=== PATIENT | female | born 1975 | race Caucasian/White ===

== ENCOUNTER 2017-05-23 06:19 | Inpatient (IN) | payer OTHER ==
[2017-05-23] VITALS (13 sets, daily range): BP systolic 104–132; BP diastolic 58–70
[~2017-05-23] VITALS: Ht 167.6 cm; Wt 104.2 kg
[~2017-05-23 06:19] MED LIST: BUPR150T8 PO; FERR325C PO; MULT-38 PO
[2017-05-23] MEDS ORDERED: normal saline 1000ML IV soln IVB ONE ×2 (06:35→11:25)
[2017-05-23 07:00] LABS: ABG BASE EXCESS -2.5 mmol/L (-2.0-3.0); ABG HCO3 16.9 mmol/L (22.0-26.0); ABG OXYGEN SATURATION 98.3 % (95-98); ABG PCO2 (T) 18.5 mmHg (32.0-45.0); ABG PH (T) 7.578 (7.350-7.450); ABG PO2 (T) 121.2 mmHg (83-108); FCOHb 0.5 % (0.5-1.5); FMetHb 0.1 % (0.3-1.12); FO2Hb 97.7 % (94-100); TOTAL HEMOGLOBIN 13.6 G/dl (12.0-16.0)
[2017-05-23] MEDS ORDERED: ondansetron/PF 4mg/2ml inj IV ONE (07:00)
[2017-05-23] MEDS ORDERED: morphine 4 MG/ML inj SYRINge IV ONE (07:00)
[2017-05-23 07:01] LABS: BASOPHILS % (AUTO) 0.1 % (0-1); EOSINOPHILS # (AUTO) 0.3 X10'3 (0-0.9); EOSINOPHILS % (AUTO) 1.7 % (0-6); HEMATOCRIT 37.1 % (35.0-45.0); HEMOGLOBIN 13.4 g/dl (12.0-16.0); LYMPHOCYTES # (AUTO) 0.7 X10'3 (1.1-4.8); LYMPHOCYTES % (AUTO) 4.1 % (21-51); MEAN CORPUSCULAR HEMOGLOBIN 31.4 PG (27.0-31.0); MEAN CORPUSCULAR VOLUME 87.2 FL (78-98); MEAN PLATELET VOLUME 7.1 FL (7.4-10.4); MONOCYTES # (AUTO) 0.5 X10'3 (0-0.9); MONOCYTES % (AUTO) 2.9 % (2-12); NEUTROPHILS # (AUTO) 14.9 X10'3 (1.8-7.7); NEUTROPHILS % (AUTO) 91.2 % (42-75); PLATELET COUNT 291 X10'3 (140-440); RED BLOOD COUNT 4.26 X10'6 (4.20-5.60); WHITE BLOOD COUNT 16.3 X10'3 (4.5-11.0)
[2017-05-23 07:12] LABS: INR 1.1 INR; PARTIAL THROMBOPLASTIN TIME 26 SECONDS (22-32); PROTHROMBIN TIME 11.6 SECONDS (9.0-12.0)
[2017-05-23 07:25] LABS: ACETAMINOPHEN < 2.0 UG/ML (10-30); ALANINE AMINOTRANSFERASE 31 U/L (12-78); ALBUMIN 3.5 G/DL (3.4-5.0); ALKALINE PHOSPHATASE 94 IU/L (46-116); ANION GAP 19 (8-16); ASPARTATE AMINO TRANSFERASE 31 U/L (10-37); BILIRUBIN,TOTAL 0.5 MG/DL (0.1-1.0); BLOOD UREA NITROGEN 12 MG/DL (7-18); BUN/CREATININE RATIO 4.9 (6.6-38.0); CHLORIDE 101 MMOL/L (99-107); CREATININE 2.45 MG/DL (0.40-0.90); ETHANOL < 0.010 GM/DL (0.0-0.010); GLUCOSE 178 MG/DL (70-104); POTASSIUM 3.5 MMOL/L (3.5-5.1); SODIUM 139 MMOL/L (135-145); TOTAL CARBON DIOXIDE 18.9 MMOL/L (24-32); TOTAL PROTEIN 7.1 G/DL (6.4-8.2); eGFR 22 ML/MIN
[2017-05-23] MEDS ORDERED: haloperidol lactate 5mg/ml inj IM ONE (07:35)
[2017-05-23 07:43] LABS: OSMOLALITY 343 MOSM/K (280-300)
[2017-05-23] MEDS: K, MAG and/or Phos replacement - Verify level? MC SCH (08:00)
[2017-05-23] MEDS ORDERED: HYDROmorphone 1 mg/ml syringe IV ONE (08:10)
[2017-05-23] MEDS ORDERED: HYDROmorphone inj. 0.5 MG/0.5 ML DISP.SYRIN IV ONE (08:15)
[2017-05-23 08:25] LABS: CLARITY,URINE SLIGHTLY CLOUDY (Clear); COLOR,URINE YELLOW (Yellow); GLUCOSE, URINE NEGATIVE (Neg); KETONES,URINE >=80 mg/dl (Neg); LEUKOCYTE ESTERASE ,URINE NEGATIVE (Neg); NITRITES, URINE NEGATIVE (Neg); OCCULT BLOOD,URINE MODERATE (Neg); PH,URINE 5.5 (4.8-8.0); PROTEIN,URINE 30 mg/dl (Neg); UROBILINOGEN,URINE 0.2 E.U/dL (0.2-1.0)
[2017-05-23 08:27] LABS: UA COLLECTION TYPE VOIDED
[2017-05-23] MEDS ORDERED: succinylcholine 20mg/ml inj IV ONE ×2 (08:33→08:40)
[2017-05-23 08:34] LABS: BACTERIA,URINE 2+ /HPF (Neg); MUCUS STRANDS FEW /LPF (Neg); SQUAMOUS EPITHELIAL CELL,UR MODERATE /LPF (FEW); WBC,URINE 0-4 /HPF (0-4)
[2017-05-23 08:40] LABS: URINE AMPHETAMINE SCREEN NEGATIVE (Neg); URINE BARBITUATE SCREEN NEGATIVE (Neg); URINE BENZODIAZEPINES SCREEN NEGATIVE (Neg); URINE CANNABINOID SCREEN NEGATIVE (Neg); URINE COCAINE SCREEN NEGATIVE (Neg); URINE METHADONE SCREEN NEGATIVE (Neg); URINE OPIATE SCREEN POSITIVE (Neg); URINE PHENCYCLIDINE SCREEN NEGATIVE (Neg)
[2017-05-23] MEDS ORDERED: etomidate 2mg/ml inj. IV ONE (08:40)
[2017-05-23] MEDS ORDERED: propofol 1000mg/100ml bottle 100 ML IV ONE (08:50)
[2017-05-23] MEDS ORDERED: propofol 1000mg/100ml bottle 100 ML IV PRN ×2 (08:53→11:07)
[2017-05-23 08:59] LABS: CKMB RELATIVE INDEX 0.6 RATIO (0-2.5); CREATINE KINASE 185 U/L (26-192); LIPASE 58 U/L (73-393)
[2017-05-23] MEDS ORDERED: VECuronium br 10mg inj. IV ONE ×2 (09:15→09:20)
[2017-05-23] MEDS ORDERED: fentaNYL/PF 50MCG/1 ML 2ML syringe IV ONE (09:20)
[2017-05-23] MEDS ORDERED: CefTRIAXone 2gm/NS 100ml IVPB 100 ML IV ONE (09:25)
[2017-05-23] MEDS ORDERED: MIDAZolam 5mg/ml 2ml vial IV ONE (09:30)
[2017-05-23] MEDS ORDERED: sodium phosphate inj. 30 MMOL in dextrose 5%-water 250 ML IV PRN (09:35)
[2017-05-23] MEDS ORDERED: magnesium hydroxide 30ml (MOM) UD suspension PO PRN (09:35)
[2017-05-23] MEDS ORDERED: sodium phosphate inj. 15 MMOL in dextrose 5%-water 150 ML IV PRN (09:35)
[2017-05-23] MEDS ORDERED: Neutra Phos packet PO PRN (09:35)
[2017-05-23] MEDS ORDERED: magnesium Cl slow-release 64mg tablet PO PRN (09:35)
[2017-05-23] MEDS ORDERED: LORazepam 2 mg/ml vial IV PRN ×2 (09:35)
[2017-05-23] MEDS ORDERED: dextrose 50%-water 50ml dispensing syringe IV PRN (09:35)
[2017-05-23] MEDS ORDERED: magnesium 2GM in 50ml NS 50 ML IV PRN (09:35)
[2017-05-23] MEDS ORDERED: magnesium 4gm in 100ml NS 100 ML IV PRN (09:35)
[2017-05-23] MEDS ORDERED: potassium Cl 20 mEq SR tablet PO PRN (09:35)
[2017-05-23] MEDS ORDERED: haloperidol lactate 5mg/ml inj IM PRN (09:35)
[2017-05-23] MEDS ORDERED: acetaminophen 325mg tablet PO PRN ×2 (09:35)
[2017-05-23] MEDS ORDERED: thiamine 100mg/ml 2ml inj. IV ONE (09:35)
[2017-05-23] MEDS ORDERED: thiamine inj. 100 MG in normal saline 100ml IV soln 99 ML IV ONE (10:05)
[2017-05-23 10:17] LABS: ABG BASE EXCESS -2.3 mmol/L (-2.0-3.0); ABG HCO3 20.1 mmol/L (22.0-26.0); ABG OXYGEN SATURATION 97.4 % (95-98); ABG PCO2 (T) 28.2 mmHg (32.0-45.0); ABG PH (T) 7.471 (7.350-7.450); ABG PO2 (T) 101.8 mmHg (83-108); FCOHb 0.1 % (0.5-1.5); FMetHb 0.2 % (0.3-1.12); FO2Hb 97.1 % (94-100); PEEP 5 cm H2O; RESPIRATORY RATE 16 b/min; TIDAL VOLUME 400 mL; TOTAL HEMOGLOBIN 13.1 G/dl (12.0-16.0)
[2017-05-23] MEDS: FENTANYL-0.9 % NACL/PF 100 ML IV PRN ×3 (11:07→17:45)
[2017-05-23] MEDS: propofol 1000mg/100ml bottle 100 ML IV PRN ×3 (11:09→20:44)
[2017-05-23] MEDS: normal saline 1000ml 1,000 ML IV SCH ×2 (11:32→23:18)
[2017-05-23] MEDS: midazolam 100mg in NS 100ml 100 ML IV PRN ×2 (11:32→20:44)
[2017-05-23 13:16] LABS: ALBUMIN 3.3 G/DL (3.4-5.0); ANION GAP 12 (8-16); BLOOD UREA NITROGEN 8 MG/DL (7-18); BUN/CREATININE RATIO 3.6 (6.6-38.0); CALCIUM 7.9 MG/DL (8.5-10.1); CHLORIDE 105 MMOL/L (99-107); CREATININE 2.21 MG/DL (0.40-0.90); GLUCOSE 130 MG/DL (70-104); SODIUM 141 MMOL/L (135-145); eGFR 24 ML/MIN
[2017-05-23 13:17] LABS: POTASSIUM 3.8 MMOL/L (3.5-5.1)
[2017-05-23] MEDS ORDERED: NO HOME MEDS (13:24)
[2017-05-23 13:39] LABS: OSMOLALITY 328 MOSM/K (280-300)
[2017-05-23] MEDS: heparin, porcine 5000 units/ml vial SQ SCH (20:42)
[2017-05-23 21:00] LABS: ANION GAP 12 (8-16); BLOOD UREA NITROGEN 5 MG/DL (7-18); BUN/CREATININE RATIO 2.3 (6.6-38.0); CALCIUM 7.9 MG/DL (8.5-10.1); CHLORIDE 106 MMOL/L (99-107); CREATININE 2.14 MG/DL (0.40-0.90); GLUCOSE 120 MG/DL (70-104); POTASSIUM 3.4 MMOL/L (3.5-5.1); SODIUM 142 MMOL/L (135-145); TOTAL CARBON DIOXIDE 24.1 MMOL/L (24-32); eGFR 25 ML/MIN
[2017-05-23] MEDS ORDERED: normal saline 500ml IV soln 500 ML IV ONE (21:00)
[2017-05-23 21:23] LABS: OSMOLALITY 322 MOSM/K (280-300)
[2017-05-23] MEDS ORDERED: potassium Cl 40MEQ/NS 500ml 500 ML IV PRN ×2 (22:40)
[2017-05-23] MEDS ORDERED: potassium Cl 40MEQ/NS 500ml 500 ML IV ONE (23:07)
[2017-05-24] VITALS (24 sets, daily range): BP systolic 99–149; BP diastolic 51–80
[2017-05-24] MEDS: propofol 1000mg/100ml bottle 100 ML IV PRN ×2 (01:21→11:09)
[2017-05-24 03:45] LABS: ABG BASE EXCESS -2.9 mmol/L (-2.0-3.0); ABG HCO3 23.1 mmol/L (22.0-26.0); ABG OXYGEN SATURATION 96.9 % (95-98); ABG PCO2 (T) 44.4 mmHg (32.0-45.0); ABG PH (T) 7.332 (7.350-7.450); ABG PO2 (T) 97.4 mmHg (83-108); ALLEN'S TEST Positive; FCOHb 0.3 % (0.5-1.5); FMetHb 0.2 % (0.3-1.12); FO2Hb 96.4 % (94-100); MINUTE VOLUME 5 L/min; PATIENT TEMPERATURE 36.7; PEEP 5 cm H2O; RESPIRATORY RATE 12 b/min; RESPIRATORY RATE (OBSERVED) 12 b/min; TIDAL VOLUME 400 mL
[2017-05-24 05:48] LABS: BASOPHILS % (AUTO) 0.2 % (0-1); EOSINOPHILS # (AUTO) 0.1 X10'3 (0-0.9); EOSINOPHILS % (AUTO) 0.8 % (0-6); HEMATOCRIT 31.8 % (35.0-45.0); HEMOGLOBIN 11.2 g/dl (12.0-16.0); LYMPHOCYTES # (AUTO) 2.1 X10'3 (1.1-4.8); LYMPHOCYTES % (AUTO) 27.2 % (21-51); MEAN CORPUSCULAR HEMOGLOBIN 31.1 PG (27.0-31.0); MEAN CORPUSCULAR HGB CONC 35.1 % (33.0-36.5); MEAN CORPUSCULAR VOLUME 88.5 FL (78-98); MEAN PLATELET VOLUME 7.4 FL (7.4-10.4); MONOCYTES # (AUTO) 0.5 X10'3 (0-0.9); MONOCYTES % (AUTO) 6.4 % (2-12); NEUTROPHILS # (AUTO) 5.1 X10'3 (1.8-7.7); NEUTROPHILS % (AUTO) 65.4 % (42-75); PLATELET COUNT 167 X10'3 (140-440); RED BLOOD COUNT 3.59 X10'6 (4.20-5.60); RED CELL DISTRIBUTION WIDTH 14.8 % (11.5-14.5); WHITE BLOOD COUNT 7.9 X10'3 (4.5-11.0)
[2017-05-24 06:04] LABS: ALANINE AMINOTRANSFERASE 34 U/L (12-78); ALBUMIN 2.7 G/DL (3.4-5.0); ALBUMIN/GLOBULIN RATIO 0.9 (1.1-1.5); ALKALINE PHOSPHATASE 72 IU/L (46-116); ANION GAP 10 (8-16); ASPARTATE AMINO TRANSFERASE 43 U/L (10-37); BILIRUBIN,TOTAL 0.2 MG/DL (0.1-1.0); BLOOD UREA NITROGEN 4 MG/DL (7-18); BUN/CREATININE RATIO 2.1 (6.6-38.0); CALCIUM 7.6 MG/DL (8.5-10.1); CHLORIDE 110 MMOL/L (99-107); CREATININE 1.94 MG/DL (0.40-0.90); GLUCOSE 102 MG/DL (70-104); PHOSPHORUS 2.4 MG/DL (2.3-4.5); SODIUM 143 MMOL/L (135-145); TOTAL CARBON DIOXIDE 23.5 MMOL/L (24-32); TOTAL PROTEIN 5.8 G/DL (6.4-8.2); eGFR 28 ML/MIN
[2017-05-24 06:20] LABS: OSMOLALITY 318 MOSM/K (280-300)
[2017-05-24] MEDS: FENTANYL-0.9 % NACL/PF 100 ML IV PRN (06:25)
[2017-05-24 06:48] LABS: ALBUMIN 2.7 G/DL (3.4-5.0); ANION GAP 10 (8-16); BLOOD UREA NITROGEN 4 MG/DL (7-18); BUN/CREATININE RATIO 2.2 (6.6-38.0); CALCIUM 7.6 MG/DL (8.5-10.1); CHLORIDE 110 MMOL/L (99-107); CREATININE 1.85 MG/DL (0.40-0.90); GLUCOSE 102 MG/DL (70-104); SODIUM 142 MMOL/L (135-145); TOTAL CARBON DIOXIDE 21.7 MMOL/L (24-32); eGFR 30 ML/MIN
[2017-05-24] MEDS: normal saline 1000ml 1,000 ML IV SCH ×2 (06:50→10:24)
[2017-05-24] MEDS: K, MAG and/or Phos replacement - Verify level? MC SCH (08:00)
[2017-05-24] MEDS: pantoprazole 40 MG vial IV SCH (08:31)
[2017-05-24] MEDS: heparin, porcine 5000 units/ml vial SQ SCH ×2 (08:31→22:31)
[2017-05-24] MEDS ORDERED: cefTRIAXone 1g/NS 100ml IVPB 100 ML IV SCH (12:00)
[2017-05-24] MEDS: NS IV SCH (12:46)
[2017-05-24] MEDS: CEFTRIAXONE IV SCH (12:46)
[2017-05-24] MEDS: [UNRECOGNIZED DRUG - REMARK] IV SCH ×4 (13:33)
[2017-05-24] MEDS ORDERED: folic acid inj. 2 MG, thiamine inj. 100 MG, MVI, adult No.4 with vit. K 10 ML in dextro... IV SCH ×4 (14:00)
[2017-05-24] MEDS: mineral oil/petrolatum ophthal oint EACHEYE SCH ×2 (14:00→20:00)
[2017-05-24 14:40] LABS: ALLEN'S TEST Positive
[2017-05-24] MEDS: ondansetron/PF 4mg/2ml inj IV PRN (16:30)
[2017-05-24] MEDS: benzocaine/menthol oral lozeng 1 EACH BOX MM PRN (22:32)
[2017-05-25] VITALS (16 sets, daily range): BP systolic 88–156; BP diastolic 60–97
[2017-05-25] MEDS: ondansetron/PF 4mg/2ml inj IV PRN (00:18)
[2017-05-25] MEDS: benzocaine/menthol oral lozeng 1 EACH BOX MM PRN ×2 (00:19→15:27)
[2017-05-25] MEDS: normal saline 1000ml 1,000 ML IV SCH ×2 (00:19→07:38)
[2017-05-25] MEDS: mineral oil/petrolatum ophthal oint EACHEYE SCH ×3 (01:38→14:00)
[2017-05-25] MEDS ORDERED: diphenhydrAMINE 50 mg/ml inj IV ONE (03:00)
[2017-05-25 05:25] LABS: BASOPHILS % (AUTO) 0.3 % (0-1); EOSINOPHILS # (AUTO) 0.1 X10'3 (0-0.9); EOSINOPHILS % (AUTO) 0.7 % (0-6); HEMATOCRIT 31.2 % (35.0-45.0); HEMOGLOBIN 11.1 g/dl (12.0-16.0); LYMPHOCYTES # (AUTO) 1.4 X10'3 (1.1-4.8); LYMPHOCYTES % (AUTO) 18.4 % (21-51); MEAN CORPUSCULAR HEMOGLOBIN 31.1 PG (27.0-31.0); MEAN CORPUSCULAR HGB CONC 35.4 % (33.0-36.5); MEAN CORPUSCULAR VOLUME 87.8 FL (78-98); MEAN PLATELET VOLUME 7.9 FL (7.4-10.4); MONOCYTES # (AUTO) 0.5 X10'3 (0-0.9); MONOCYTES % (AUTO) 6.3 % (2-12); NEUTROPHILS # (AUTO) 5.8 X10'3 (1.8-7.7); NEUTROPHILS % (AUTO) 74.3 % (42-75); PLATELET COUNT 140 X10'3 (140-440); RED BLOOD COUNT 3.56 X10'6 (4.20-5.60); RED CELL DISTRIBUTION WIDTH 14.1 % (11.5-14.5); WHITE BLOOD COUNT 7.8 X10'3 (4.5-11.0)
[2017-05-25 06:06] LABS: ALANINE AMINOTRANSFERASE 38 U/L (12-78); ALBUMIN 2.6 G/DL (3.4-5.0); ALBUMIN/GLOBULIN RATIO 0.8 (1.1-1.5); ALKALINE PHOSPHATASE 69 IU/L (46-116); ANION GAP 10 (8-16); ASPARTATE AMINO TRANSFERASE 56 U/L (10-37); BILIRUBIN,TOTAL 0.5 MG/DL (0.1-1.0); BLOOD UREA NITROGEN 2 MG/DL (7-18); BUN/CREATININE RATIO 1.5 (6.6-38.0); CALCIUM 7.9 MG/DL (8.5-10.1); CHLORIDE 107 MMOL/L (99-107); CREATININE 1.31 MG/DL (0.40-0.90); GLUCOSE 111 MG/DL (70-104); MAGNESIUM 1.8 MG/DL (1.5-2.4); PHOSPHORUS 2.1 MG/DL (2.3-4.5); POTASSIUM 3.2 MMOL/L (3.5-5.1); SODIUM 144 MMOL/L (135-145); TOTAL CARBON DIOXIDE 27.4 MMOL/L (24-32); TOTAL PROTEIN 5.9 G/DL (6.4-8.2); eGFR 45 ML/MIN
[2017-05-25] MEDS: potassium Cl 20 mEq SR tablet PO PRN ×2 (07:38→12:49)
[2017-05-25] MEDS: CEFTRIAXONE IV SCH (07:38)
[2017-05-25] MEDS: pantoprazole 40 MG vial IV SCH (07:38)
[2017-05-25] MEDS: NS IV SCH (07:38)
[2017-05-25] MEDS: heparin, porcine 5000 units/ml vial SQ SCH (07:39)
[2017-05-25] MEDS: K, MAG and/or Phos replacement - Verify level? MC SCH (07:55)
[2017-05-25] MEDS: [UNRECOGNIZED DRUG - REMARK] IV SCH ×4 (08:53)
[2017-05-25] MEDS ORDERED: naltrexone 50mg tablet PO SCH (10:10)
[2017-05-25] MEDS ORDERED: lactobacillus rhamnosus 10,000 MMU CELLS/CAPSULE PO SCH (17:30)
== END 2017-05-25 18:56 | disposition left against medical advice (07) | DRG 917 ==
LOC: ER 06:19 → ED HOLD 09:34 → ICU 2S 11:02
PROC: 5A1945Z Respiratory Ventilation, 24-96 Consecutive Hours (ICD-10-PCS; principal; 2017-05-23)
PROC: 0BH17EZ Insertion of Endotracheal Airway into Trachea, Via Natural or Artificial Opening (ICD-10-PCS; 2017-05-23)
DX: T51.2X1A Toxic effect of 2-Propanol, accidental (unintentional), initial encounter (principal); J96.00 Acute respiratory failure, unspecified whether with hypoxia or hypercapnia; G93.41 Metabolic encephalopathy; N17.9 Acute kidney failure, unspecified; E87.2 Acidosis; D72.829 Elevated white blood cell count, unspecified; F10.229 Alcohol dependence with intoxication, unspecified; F32.9 Major depressive disorder, single episode, unspecified; F41.9 Anxiety disorder, unspecified; Z98.84 Bariatric surgery status; Y92.89 Other specified places as the place of occurrence of the external cause; Z88.5 Allergy status to narcotic agent
CPT/HCPCS: 36415; 36600; 71045; 74176; 80048; 80053; 80305; 80320; 80329; 81001; 82009; 82140; 82550; 82553; 82803; 82948; 83605; 83690; 83735; 83930; 84100; 84443; 85018; 85025; 85610; 85730; 87040; 87070; 93005; 94002; 94003; 94150; 94760; 96361; 96372; 96374; 96375; 99291; 99292; A6213; C1758; C9113; J0330; J0696; J1200; J1630; J1644; J2250; J2270; J2405; J2704; J3411; J3480; J3490; J7030; J7060

== ENCOUNTER 2018-08-24 16:24 | Emergency (ER) | payer OTHER, MEDICAID ==
[~2018-08-24] VITALS: Ht 152.4 cm; Wt 84.0 kg
[~2018-08-24 16:24] MED LIST changes: -BUPR150T8 PO; -FERR325C PO; -MULT-38 PO; +NO HOME MEDS
[2018-08-24] MEDS ORDERED: normal saline 1000ML IV soln IVB ONE (16:30)
[2018-08-24 16:54] LABS: BASOPHILS % (AUTO) 0.5 % (0-1); EOSINOPHILS % (AUTO) 0 % (0-6); HEMATOCRIT 41.3 % (35.0-45.0); LYMPHOCYTES # (AUTO) 1.2 X10'3 (1.1-4.8); LYMPHOCYTES % (AUTO) 15.5 % (21-51); MEAN CORPUSCULAR HEMOGLOBIN 30.8 PG (27.0-31.0); MEAN CORPUSCULAR VOLUME 90.7 FL (78-98); MEAN PLATELET VOLUME 7.9 FL (7.4-10.4); MONOCYTES # (AUTO) 0.2 X10'3 (0-0.9); MONOCYTES % (AUTO) 2.6 % (2-12); NEUTROPHILS # (AUTO) 6.3 X10'3 (1.8-7.7); NEUTROPHILS % (AUTO) 81.4 % (42-75); PLATELET COUNT 228 X10'3 (140-440); RED BLOOD COUNT 4.55 X10'6 (4.20-5.60); RED CELL DISTRIBUTION WIDTH 14.3 % (11.5-14.5); WHITE BLOOD COUNT 7.7 X10'3 (4.5-11.0)
[2018-08-24 17:11] LABS: ALANINE AMINOTRANSFERASE 76 U/L (12-78); ALBUMIN 3.7 G/DL (3.4-5.0); ALBUMIN/GLOBULIN RATIO 0.9 (1.1-1.5); ALKALINE PHOSPHATASE 122 IU/L (46-116); ANION GAP 19 (8-16); ASPARTATE AMINO TRANSFERASE 116 U/L (10-37); BILIRUBIN,TOTAL 0.4 MG/DL (0.1-1.0); BLOOD UREA NITROGEN 15 MG/DL (7-18); BUN/CREATININE RATIO 15.3 (6.6-38.0); CALCIUM 8.3 MG/DL (8.5-10.1); CHLORIDE 94 MMOL/L (99-107); CREATININE 0.98 MG/DL (0.40-0.90); GLUCOSE 228 MG/DL (70-104); POTASSIUM 3.3 MMOL/L (3.5-5.1); SODIUM 133 MMOL/L (135-145); TOTAL CARBON DIOXIDE 20.4 MMOL/L (24-32); TOTAL PROTEIN 7.8 G/DL (6.4-8.2); eGFR 62 ML/MIN
[2018-08-24 17:37] LABS: ETHANOL 0.316 GM/DL (0.0-0.010)
[2018-08-24 17:37] LABS: URINE AMPHETAMINE SCREEN NEGATIVE (Neg); URINE BARBITUATE SCREEN NEGATIVE (Neg); URINE BENZODIAZEPINES SCREEN NEGATIVE (Neg); URINE CANNABINOID SCREEN NEGATIVE (Neg); URINE COCAINE SCREEN NEGATIVE (Neg); URINE METHADONE SCREEN NEGATIVE (Neg); URINE OPIATE SCREEN NEGATIVE (Neg); URINE PHENCYCLIDINE SCREEN NEGATIVE (Neg)
[2018-08-24] MEDS ORDERED: ringers solution, lactated 1000ml IV soln IV ONE (17:45)
[2018-08-24] MEDS ORDERED: potassium Cl 20 mEq SR tablet PO ONE (17:45)
[2018-08-24] MEDS ORDERED: potassium Cl 10 mEq/100mL bag IV ONE (17:45)
[2018-08-24] MEDS ORDERED: ondansetron/PF 4mg/2ml inj IV ONE (17:55)
[2018-08-24] MEDS ORDERED: LORazepam 2 mg/ml vial IV ONE (18:40)
--- NOTE | 2018-08-24 18:54 | NUR ---
pt requested that her family be notified of her situation in the ed. called and lm for pt's significant other, Maurisio and her daughter Jeny.
--- NOTE | 2018-08-24 19:04 | NUR ---
PT'S SO, DESIREE CALLED BACK AND WILL BE IN TO CHECK ON PT TOMORROW MORNING. HE IS RELIEVED THAT SHE IS SEEKING HELP.
--- NOTE | 2018-08-24 19:15 | NUR ---
PT SLEEPING LAYING SUPINE, RESPIRATONS EVEN AND UNLABORED, NO DISTRESS NOTED AT THIS TIME.
[2018-08-24 19:19] LABS: URINE HCG NEGATIVE (NEG)
--- NOTE | 2018-08-24 20:35 | NUR ---
pt continues to sleep, no s/s of distress noted, rr wnl.
[2018-08-24] MEDS ORDERED: folic acid 1mg tablet PO ONE (20:55)
[2018-08-24] MEDS ORDERED: thiamine 100mg tablet PO ONE (20:55)
[2018-08-24] MEDS ORDERED: chlordiazePOXIDE 25mg capsule PO ONE (20:55)
--- NOTE | 2018-08-24 21:07 | NUR ---
Pt awake and says she got some good sleep and is feeling better. Pt hungry and given some food. Pt medicated as well. Pt is calm and cooperative, no tremors observed.
--- NOTE | 2018-08-24 21:44 | NUR ---
The patient was moved to bed 26. She was very cooperative with the move. She reports that she has been suicidal for the past week and has been attempting to kill herself by drinking excessive amounts of ETOH. Her BA on arrival was 0.36. She stated that she was on one previous psychiatric hold approximately 2 years ago. She stated that she was in a healing therapy group and had been talking about her mother which triggered an emotional down turn for her. She stated her mother belittles her. She currently lives with her 19 year old daughter. She stated she currently takes no medications but has taken wellbutrin in the past.
[2018-08-24] MEDS ORDERED: haloperidol 5mg tablet PO PRN (22:45)
[2018-08-24] MEDS ORDERED: LORazepam 2 mg/ml vial IV PRN (22:45)
[2018-08-24] MEDS ORDERED: dextrose 50%-water 50ml dispensing syringe IV PRN (22:45)
[2018-08-24] MEDS ORDERED: haloperidol lactate 5mg/ml inj IM PRN (22:45)
[2018-08-24] MEDS ORDERED: thiamine 100mg/ml 2ml inj. IV ONE (22:45)
--- NOTE | 2018-08-25 00:33 | NUR ---
The patient appears to be sleeping
[2018-08-25] MEDS ORDERED: ondansetron/PF 4mg/2ml inj IM ONE (01:45)
[2018-08-25] MEDS ORDERED: ondansetron/PF 4mg/2ml inj IV ONE (01:50)
[2018-08-25] MEDS: LORazepam 1 MG tablet PO PRN ×2 (04:50→08:05)
--- NOTE | 2018-08-25 05:05 | NUR ---
The patient is complaining of increasing anxiety and now rates it 8/10. She is not sleeping well. Ativan 2mg po given
--- NOTE | 2018-08-25 06:50 | NUR ---
Awake and asking for medication for anxiety.
[2018-08-25] MEDS ORDERED: folic acid 1mg tablet PO SCH (08:00)
[2018-08-25] MEDS ORDERED: multivitamins, therapeutics tablet PO SCH (08:00)
[2018-08-25] MEDS ORDERED: thiamine 100mg tablet PO SCH (08:00)
--- NOTE | 2018-08-25 08:05 | NUR ---
Medicated for anxiety with Ativan. Accepted all other meds without event. Picked at her food. Stated she was not hungry "right now."
--- NOTE | 2018-08-25 11:38 | NUR ---
pt is in bed laying supine, regular breathing observed, no s/s of distress
--- NOTE | 2018-08-25 12:08 | NUR ---
Anastasiya from [facility] at bedside to evaluate for 5150 status.
--- NOTE | 2018-08-25 13:00 | NUR ---
Served lunch. Continued to state she was not hungry. Picked at her food. Stated "It feels good to lay here with my eyes closed and get rest."
--- NOTE | 2018-08-25 14:00 | NUR ---
Male friend here to visit. Brought patient a book.
--- NOTE | 2018-08-25 14:30 | NUR ---
Elder daughter here to visit.
--- NOTE | 2018-08-25 15:00 | NUR ---
Visitors remain at bedside talking with patient.
--- NOTE | 2018-08-25 16:00 | NUR ---
Call received from Charge Nurse Jannet CASEY stating patient had been accepted to [facility]. Patient informed. Happy to hear this information.
--- NOTE | 2018-08-25 16:30 | NUR ---
Geo from [place] for [facility] ([facility]) here to transport patient to the unit. Patient given all her personal belongings. Transported to [facility] via wheelchair.
[2018-08-25 17:34] VITALS: BP 125/68
[2018-08-29] MEDS ORDERED: HYDR-3686 PO (18:38)
[2018-08-29] MEDS ORDERED: TRAZ-251 PO (18:38)
[2018-08-29] MEDS ORDERED: VENL150T3 PO (18:38)
== END 2018-08-25 16:30 ==
LOC: ER 16:25
DX: F10.129 Alcohol abuse with intoxication, unspecified (principal); F32.9 Major depressive disorder, single episode, unspecified; R45.851 Suicidal ideations; F41.9 Anxiety disorder, unspecified; Z88.5 Allergy status to narcotic agent; Z88.6 Allergy status to analgesic agent; Y90.9 Presence of alcohol in blood, level not specified
CPT/HCPCS: 36415; 80053; 80305; 80320; 81025; 84443; 85025; 96361; 96374; 96375; 96376; 99285; J2060; J2405; J3411; J3480; J7030; J7120

== ENCOUNTER 2018-11-15 22:09 | Emergency (ER) | payer MEDICAID, OTHER ==
[~2018-11-15] VITALS: Ht 152.4 cm; Wt 79.0 kg
[~2018-11-15 22:09] MED LIST changes: +HYDR-3686 PO; -NO HOME MEDS; +TRAZ-251 PO; +VENL150T3 PO
--- NOTE | 2018-11-15 22:55 | NUR ---
Patient cleared for spinal precautions, CT of head and neck neg. Cleared by DR Benedict
[2018-11-15 22:57] LABS: BASOPHILS % (AUTO) 0.3 % (0-1); EOSINOPHILS % (AUTO) 0 % (0-6); HEMOGLOBIN 11.2 g/dl (12.0-16.0); LYMPHOCYTES # (AUTO) 1.5 X10'3 (1.1-4.8); LYMPHOCYTES % (AUTO) 23.6 % (21-51); MEAN CORPUSCULAR HEMOGLOBIN 31.5 PG (27.0-31.0); MEAN CORPUSCULAR HGB CONC 33.9 g/dL (33.0-36.5); MEAN PLATELET VOLUME 8.6 FL (7.4-10.4); MONOCYTES # (AUTO) 0.3 X10'3 (0-0.9); MONOCYTES % (AUTO) 5.1 % (2-12); NEUTROPHILS # (AUTO) 4.6 X10'3 (1.8-7.7); RED BLOOD COUNT 3.55 X10'6 (4.20-5.60); RED CELL DISTRIBUTION WIDTH 14.5 % (11.5-14.5); WHITE BLOOD COUNT 6.5 X10'3 (4.5-11.0)
[2018-11-15 23:11] LABS: ALANINE AMINOTRANSFERASE 75 U/L (12-78); ALBUMIN 3.1 G/DL (3.4-5.0); ALKALINE PHOSPHATASE 94 IU/L (46-116); ANION GAP 18 (8-16); ASPARTATE AMINO TRANSFERASE 107 U/L (10-37); BILIRUBIN,TOTAL 0.5 MG/DL (0.1-1.0); BLOOD UREA NITROGEN 8 MG/DL (7-18); BUN/CREATININE RATIO 11.3 (6.6-38.0); CALCIUM 7.7 MG/DL (8.5-10.1); CHLORIDE 103 MMOL/L (99-107); CREATININE 0.71 MG/DL (0.40-0.90); GLUCOSE 99 MG/DL (70-104); POTASSIUM 3.4 MMOL/L (3.5-5.1); SODIUM 142 MMOL/L (135-145); TOTAL CARBON DIOXIDE 20.9 MMOL/L (24-32); TOTAL PROTEIN 6.1 G/DL (6.4-8.2); eGFR 90 ML/MIN
[2018-11-15 23:16] LABS: PLATELET COUNT 72 X10'3 (140-440)
[2018-11-15 23:24] LABS: ETHANOL 0.417 GM/DL (0.0-0.010)
--- NOTE | 2018-11-15 23:33 | NUR ---
Spoke with Dr Benedict regarding laceration on patients forehead. Dr Bhardwaj said he has decided on plan of care at this time.
[2018-11-16] MEDS ORDERED: normal saline 1000ML IV soln IVB ONE (00:55)
[2018-11-16] MEDS ORDERED: TETanus/Pertussis (Acell)/Diphther VAC/PF (Tdap-Adult) 0.5ml syringe IM ONE (00:55)
[2018-11-16] MEDS ORDERED: LIDOcaine 1% w/epiNEPHrine 1:200,000 30ml vial IM ONE (00:55)
--- NOTE | 2018-11-16 01:30 | NUR ---
Dr Benedict at bedside with patient Addendum: 11/16/18 at 0213 by LUCILA Local anesthetic administered to laceration on forehead at this time
[2018-11-16 02:04] LABS: URINE AMPHETAMINE SCREEN NEGATIVE (Neg); URINE BARBITUATE SCREEN NEGATIVE (Neg); URINE BENZODIAZEPINES SCREEN NEGATIVE (Neg); URINE CANNABINOID SCREEN NEGATIVE (Neg); URINE COCAINE SCREEN NEGATIVE (Neg); URINE METHADONE SCREEN NEGATIVE (Neg); URINE OPIATE SCREEN NEGATIVE (Neg); URINE PHENCYCLIDINE SCREEN NEGATIVE (Neg)
--- NOTE | 2018-11-16 02:12 | NUR ---
Wound irrigated by archives technician
[2018-11-16] MEDS ORDERED: ondansetron/PF 4mg/2ml inj IV ONE (03:40)
[2018-11-16] MEDS ORDERED: CEPH-572 PO (05:22)
[2018-11-16 05:45] VITALS: BP 135/77
== END 2018-11-16 05:51 | disposition home or self-care (01) ==
LOC: ER 22:10
DX: S06.0X0A Concussion without loss of consciousness, initial encounter (principal); S01.81XA Laceration without foreign body of other part of head, initial encounter; S70.12XA Contusion of left thigh, initial encounter; S60.222A Contusion of left hand, initial encounter; S60.221A Contusion of right hand, initial encounter; S80.212A Abrasion, left knee, initial encounter; S80.211A Abrasion, right knee, initial encounter; F10.129 Alcohol abuse with intoxication, unspecified; F41.9 Anxiety disorder, unspecified; F32.9 Major depressive disorder, single episode, unspecified; Z88.6 Allergy status to analgesic agent; Z88.5 Allergy status to narcotic agent; Z79.899 Other long term (current) drug therapy; W18.39XA Other fall on same level, initial encounter; Y93.89 Activity, other specified; Y92.89 Other specified places as the place of occurrence of the external cause; Y99.8 Other external cause status; Y90.0 Blood alcohol level of less than 20 mg/100 ml
CPT/HCPCS: 12052; 36415; 70450; 72125; 80053; 80305; 80320; 85025; 90471; 90715; 96374; 99284; J2405; J7030

== ENCOUNTER 2019-01-05 20:32 | Emergency (ER) | payer MEDICAID ==
[~2019-01-05] VITALS: Ht 152.4 cm; Wt 90.0 kg
[2019-01-05] MEDS ORDERED: normal saline 1000ML IV soln IVB ONE (20:45)
[2019-01-05] MEDS ORDERED: ondansetron/PF 4mg/2ml inj IV ONE ×2 (20:45)
[2019-01-05] MEDS ORDERED: TETanus/Pertussis (Acell)/Diphther VAC/PF (Tdap-Adult) 0.5ml syringe IM ONE (20:45)
--- NOTE | 2019-01-05 21:05 | NUR ---
pt to ct via w/c. She is still crying.
[2019-01-05 21:08] LABS: BASOPHILS # (AUTO) 0.1 X10'3 (0-0.2); BASOPHILS % (AUTO) 1.3 % (0-1); EOSINOPHILS # (AUTO) 0.1 X10'3 (0-0.9); EOSINOPHILS % (AUTO) 1.2 % (0-6); HEMATOCRIT 35.1 % (35.0-45.0); LYMPHOCYTES # (AUTO) 2.8 X10'3 (1.1-4.8); MEAN CORPUSCULAR HEMOGLOBIN 34.3 PG (27.0-31.0); MEAN CORPUSCULAR HGB CONC 34.2 g/dL (33.0-36.5); MEAN CORPUSCULAR VOLUME 100.3 FL (78-98); MEAN PLATELET VOLUME 6.9 FL (7.4-10.4); MONOCYTES # (AUTO) 0.5 X10'3 (0-0.9); MONOCYTES % (AUTO) 9.2 % (2-12); NEUTROPHILS # (AUTO) 1.6 X10'3 (1.8-7.7); NEUTROPHILS % (AUTO) 32.3 % (42-75); PLATELET COUNT 310 X10'3 (140-440); RED CELL DISTRIBUTION WIDTH 16.5 % (11.5-14.5)
[2019-01-05 21:18] LABS: ALANINE AMINOTRANSFERASE 42 U/L (12-78); ALBUMIN 2.6 G/DL (3.4-5.0); ALBUMIN/GLOBULIN RATIO 0.8 (1.1-1.5); ALKALINE PHOSPHATASE 89 IU/L (46-116); ANION GAP 9 (8-16); ASPARTATE AMINO TRANSFERASE 58 U/L (10-37); BILIRUBIN,TOTAL 0.1 MG/DL (0.1-1.0); BLOOD UREA NITROGEN 7 MG/DL (7-18); BUN/CREATININE RATIO 10.3 (6.6-38.0); CALCIUM 7.4 MG/DL (8.5-10.1); CHLORIDE 114 MMOL/L (99-107); CREATININE 0.68 MG/DL (0.40-0.90); GLUCOSE 103 MG/DL (70-104); POTASSIUM 3.5 MMOL/L (3.5-5.1); SODIUM 150 MMOL/L (135-145); TOTAL CARBON DIOXIDE 26.6 MMOL/L (24-32); eGFR > 90 ML/MIN
--- NOTE | 2019-01-05 21:18 | NUR ---
pt crying. She will stop and then start up again. Up to the BR with SBA of tech to get a ua with a hat.
[2019-01-05 21:31] LABS: BASOPHILS % (MANUAL) 1 % (0-1); LYMPHOCYTES % (MANUAL) 55 % (21-51); MONOCYTES % (MANUAL) 6 % (2-12); NEUTROPHILS % (MANUAL) 38 % (42-75); PLATELET ESTIMATE NORMAL; TOTAL CELLS COUNTED 100
[2019-01-05 21:32] LABS: ANISOCYTOSIS 1+
[2019-01-05 21:38] LABS: URINE HCG NEGATIVE (NEG)
--- NOTE | 2019-01-05 21:41 | NUR ---
DISCUSSED PT'S STATUS WITH LAMINE GUERRERO; NEW ORDER FOR REGLAN RECEIVED.
[2019-01-05 21:42] LABS: CLARITY,URINE CLEAR (Clear); COLOR,URINE YELLOW (Yellow); GLUCOSE, URINE NEGATIVE (Neg); KETONES,URINE NEGATIVE (Neg); LEUKOCYTE ESTERASE ,URINE TRACE (Neg); NITRITES, URINE POSITIVE (Neg); OCCULT BLOOD,URINE NEGATIVE (Neg); PROTEIN,URINE NEGATIVE (Neg); UROBILINOGEN,URINE 0.2 E.U/dL (0.2-1.0)
[2019-01-05] MEDS ORDERED: metoclopramide 5 mg/ml inj IV ONE (21:45)
[2019-01-05 21:48] LABS: UA COLLECTION TYPE CLN CATCH MIDSTREAM
[2019-01-05 21:49] LABS: BACTERIA,URINE 3+ /HPF (Neg); MUCUS STRANDS NONE SEEN /LPF (Neg); RBC,URINE NONE SEEN /HPF (0-2); SQUAMOUS EPITHELIAL CELL,UR FEW /LPF (FEW); URINE AMPHETAMINE SCREEN NEGATIVE (Neg); URINE BARBITUATE SCREEN NEGATIVE (Neg); URINE BENZODIAZEPINES SCREEN NEGATIVE (Neg); URINE CANNABINOID SCREEN NEGATIVE (Neg); URINE COCAINE SCREEN NEGATIVE (Neg); URINE METHADONE SCREEN NEGATIVE (Neg); URINE OPIATE SCREEN NEGATIVE (Neg); URINE PHENCYCLIDINE SCREEN NEGATIVE (Neg)
[2019-01-05] MEDS ORDERED: CefTRIAXone 2gm/D5W 50ml 50 ML IV ONE (21:50)
[2019-01-05 21:57] LABS: ETHANOL 0.373 GM/DL (0.0-0.010)
--- NOTE | 2019-01-05 22:12 | NUR ---
daughter on the way up here.
[2019-01-05 22:34] VITALS: BP 147/76
== END 2019-01-05 23:10 | disposition home or self-care (01) ==
LOC: ER 20:32
DX: S06.0X0A Concussion without loss of consciousness, initial encounter (principal); S01.81XA Laceration without foreign body of other part of head, initial encounter; S40.022A Contusion of left upper arm, initial encounter; F10.129 Alcohol abuse with intoxication, unspecified; F41.9 Anxiety disorder, unspecified; F32.9 Major depressive disorder, single episode, unspecified; Z88.5 Allergy status to narcotic agent; Z88.6 Allergy status to analgesic agent; Z79.899 Other long term (current) drug therapy; Y08.89XA Assault by other specified means, initial encounter; Y93.89 Activity, other specified; Y92.89 Other specified places as the place of occurrence of the external cause; Y99.8 Other external cause status; Y90.0 Blood alcohol level of less than 20 mg/100 ml
CPT/HCPCS: 36415; 70450; 80053; 80305; 80320; 81001; 81025; 85025; 87077; 87088; 87186; 96365; 96375; 99284; J0696; J2405; J2765; J7030

== ENCOUNTER 2019-02-18 09:38 | Emergency (ER) | payer MEDICAID ==
[~2019-02-18] VITALS: Ht 152.4 cm; Wt 81.0 kg
--- NOTE | 2019-02-18 10:36 | NUR ---
PT STATES THAT HER EFFEXOR WAS RECENTLY INCREASED FROM 150MG TO 225MG.
[2019-02-18 11:09] LABS: BASOPHILS % (AUTO) 0.4 % (0-1); EOSINOPHILS # (AUTO) 0.1 X10'3 (0-0.9); EOSINOPHILS % (AUTO) 1.1 % (0-6); HEMATOCRIT 36.2 % (35.0-45.0); HEMOGLOBIN 12.4 g/dl (12.0-16.0); LYMPHOCYTES # (AUTO) 1.2 X10'3 (1.1-4.8); LYMPHOCYTES % (AUTO) 21.9 % (21-51); MEAN CORPUSCULAR HEMOGLOBIN 33.6 PG (27.0-31.0); MEAN CORPUSCULAR HGB CONC 34.2 g/dL (33.0-36.5); MEAN CORPUSCULAR VOLUME 98.3 FL (78-98); MEAN PLATELET VOLUME 9.3 FL (7.4-10.4); MONOCYTES # (AUTO) 0.7 X10'3 (0-0.9); NEUTROPHILS # (AUTO) 3.6 X10'3 (1.8-7.7); NEUTROPHILS % (AUTO) 64.6 % (42-75); RED BLOOD COUNT 3.68 X10'6 (4.20-5.60); RED CELL DISTRIBUTION WIDTH 14.7 % (11.5-14.5); WHITE BLOOD COUNT 5.5 X10'3 (4.5-11.0)
[2019-02-18 11:13] LABS: ANION GAP 7 (8-16); BLOOD UREA NITROGEN 14 MG/DL (7-18); CHLORIDE 101 MMOL/L (99-107); CREATININE 0.78 MG/DL (0.40-0.90); GLUCOSE 95 MG/DL (70-104); POTASSIUM 3.2 MMOL/L (3.5-5.1); SODIUM 136 MMOL/L (135-145); TOTAL CARBON DIOXIDE 28.1 MMOL/L (24-32)
[2019-02-18 11:14] LABS: ALANINE AMINOTRANSFERASE 67 U/L (12-78); ALBUMIN 3.5 G/DL (3.4-5.0); ALKALINE PHOSPHATASE 89 IU/L (46-116); ASPARTATE AMINO TRANSFERASE 53 U/L (10-37); BILIRUBIN,TOTAL 0.6 MG/DL (0.1-1.0); BUN/CREATININE RATIO 17.9 (6.6-38.0); CALCIUM 8.9 MG/DL (8.5-10.1); ETHANOL < 0.010 GM/DL (0.0-0.010); TOTAL PROTEIN 7.1 G/DL (6.4-8.2); eGFR 81 ML/MIN
[2019-02-18 11:15] LABS: CLARITY,URINE SLIGHTLY CLOUDY (Clear); GLUCOSE, URINE NEGATIVE (Neg); KETONES,URINE 15 mg/dl (Neg); LEUKOCYTE ESTERASE ,URINE SMALL (Neg); NITRITES, URINE NEGATIVE (Neg); OCCULT BLOOD,URINE NEGATIVE (Neg); PH,URINE 5.5 (4.8-8.0); PROTEIN,URINE TRACE mg/dl (Neg); URINE HCG NEGATIVE (NEG)
[2019-02-18 11:17] LABS: COLOR,URINE DARK YELLOW (Yellow); UA COLLECTION TYPE CLN CATCH MIDSTREAM
--- NOTE | 2019-02-18 11:19 | NUR ---
Pt resting comfortably in bed. Family at bedside. No shaking noted.
[2019-02-18] MEDS ORDERED: POTASSIUM BICARB 20meq eff tab 20 MEQ TABLET.EFF PO ONE (11:20)
[2019-02-18 11:24] LABS: WBC,URINE 20-30 /HPF (0-4)
[2019-02-18 11:25] LABS: BACTERIA,URINE FEW /HPF (Neg); MUCUS STRANDS FEW /LPF (Neg); RBC,URINE 0-2 /HPF (0-2); SQUAMOUS EPITHELIAL CELL,UR MANY /LPF (FEW)
[2019-02-18 11:28] LABS: PLATELET COUNT 93 X10'3 (140-440)
[2019-02-18 11:37] LABS: URINE AMPHETAMINE SCREEN NEGATIVE (Neg); URINE BARBITUATE SCREEN NEGATIVE (Neg); URINE BENZODIAZEPINES SCREEN NEGATIVE (Neg); URINE CANNABINOID SCREEN NEGATIVE (Neg); URINE COCAINE SCREEN NEGATIVE (Neg); URINE METHADONE SCREEN NEGATIVE (Neg); URINE OPIATE SCREEN NEGATIVE (Neg); URINE PHENCYCLIDINE SCREEN NEGATIVE (Neg)
[2019-02-18 11:56] VITALS: BP 143/98
== END 2019-02-18 12:07 | disposition home or self-care (01) ==
LOC: ER 09:39
DX: G25.2 Other specified forms of tremor (principal); F41.9 Anxiety disorder, unspecified; F32.9 Major depressive disorder, single episode, unspecified; Z88.5 Allergy status to narcotic agent; Z88.6 Allergy status to analgesic agent
CPT/HCPCS: 36415; 80053; 80305; 80320; 81001; 81025; 85025; 93005; 99284

== ENCOUNTER 2019-12-17 22:08 | Emergency (ER) | payer MEDICAID ==
[~2019-12-17] VITALS: Ht 152.4 cm; Wt 84.1 kg
[2019-12-17 22:10] VITALS: BP 142/92
[2019-12-17] MEDS ORDERED: acetaminophen 325mg tablet PO ONE (23:20)
== END 2019-12-17 23:31 | disposition left against medical advice (07) ==
LOC: ER 22:09
DX: R06.02 Shortness of breath (principal); R51 Headache; F41.9 Anxiety disorder, unspecified; F32.9 Major depressive disorder, single episode, unspecified; Z53.21 Procedure and treatment not carried out due to patient leaving prior to being seen by health care provider

== ENCOUNTER 2020-06-28 12:00 | Outpatient (CLI) | payer OTHER | END 2020-06-28 23:59 | disposition home or self-care (01) | LOC: RAD 12:00 | PROVIDERS: ATTEND Internal Medicine Infectious Disease | DX: Z11.1 Encounter for screening for respiratory tuberculosis (principal) | CPT/HCPCS: 71045 ==

== ENCOUNTER 2020-09-07 07:00 | Observation (INO) | payer BC, OTHER ==
[~2020-09-07] VITALS: Ht 152.4 cm; Wt 78.9 kg
[2020-09-07] MEDS ORDERED: normal saline 1000ml 1,000 ML IV ONE ×4 (07:30→13:00)
[2020-09-07] MEDS ORDERED: ondansetron/PF 4mg/2ml inj IV ONE (07:30)
[2020-09-07] MEDS ORDERED: iohexol 300mg/ml 100ml inj. ONE (07:43)
[2020-09-07 08:15] LABS: BASOPHILS % (AUTO) 0.4 % (0-1); EOSINOPHILS % (AUTO) 0.1 % (0-6); HEMATOCRIT 40.6 % (35.0-45.0); HEMOGLOBIN 13.9 g/dl (12.0-16.0); LYMPHOCYTES # (AUTO) 1.4 X10'3 (1.1-4.8); LYMPHOCYTES % (AUTO) 10.9 % (21-51); MEAN CORPUSCULAR HEMOGLOBIN 30.9 PG (27.0-31.0); MEAN CORPUSCULAR HGB CONC 34.2 g/dL (33.0-36.5); MEAN CORPUSCULAR VOLUME 90.1 FL (78-98); MEAN PLATELET VOLUME 8.2 FL (7.4-10.4); MONOCYTES # (AUTO) 0.4 X10'3 (0-0.9); MONOCYTES % (AUTO) 3.3 % (2-12); NEUTROPHILS # (AUTO) 11.2 X10'3 (1.8-7.7); NEUTROPHILS % (AUTO) 85.3 % (42-75); PLATELET COUNT 270 X10'3 (140-440); RED CELL DISTRIBUTION WIDTH 14.3 % (11.5-14.5); WHITE BLOOD COUNT 13.1 X10'3 (4.5-11.0)
[2020-09-07 08:25] LABS: ALANINE AMINOTRANSFERASE 65 U/L (12-78); ALBUMIN 3.4 G/DL (3.4-5.0); ALBUMIN/GLOBULIN RATIO 0.9 (1.1-1.5); ALKALINE PHOSPHATASE 125 IU/L (46-116); ANION GAP 22 (8-16); ASPARTATE AMINO TRANSFERASE 66 U/L (10-37); BILIRUBIN,TOTAL 0.9 MG/DL (0.1-1.0); BLOOD UREA NITROGEN 21 MG/DL (7-18); BUN/CREATININE RATIO 22.6 (6.6-38.0); CHLORIDE 97 MMOL/L (99-107); CREATININE 0.93 MG/DL (0.40-0.90); GLUCOSE 110 MG/DL (70-104); LIPASE < 50 U/L (73-393); POTASSIUM 3.4 MMOL/L (3.5-5.1); SODIUM 135 MMOL/L (135-145); TOTAL CARBON DIOXIDE 16.1 MMOL/L (24-32); TOTAL PROTEIN 7.3 G/DL (6.4-8.2); eGFR 65 ML/MIN
[2020-09-07] MEDS ORDERED: metoclopramide 5 mg/ml inj IV ONE (08:35)
[2020-09-07] MEDS ORDERED: diphenhydrAMINE 50 mg/ml inj IV ONE (08:35)
[2020-09-07 08:40] LABS: HCG SERUM QL NEGATIVE
--- NOTE | 2020-09-07 10:00 | NUR ---
ACTIVE EMESIS EARLIER WITH ANXIETY. EATING ICE CHIPS VIGOROUSLY. IV PATENT AND INFUSING WELL.
[2020-09-07 10:43] LABS: CLARITY,URINE SLIGHTLY CLOUDY (Clear); COLOR,URINE YELLOW (Yellow); GLUCOSE, URINE NEGATIVE (Neg); KETONES,URINE 15 mg/dl (Neg); LEUKOCYTE ESTERASE ,URINE NEGATIVE (Neg); NITRITES, URINE NEGATIVE (Neg); OCCULT BLOOD,URINE LARGE (Neg); PROTEIN,URINE TRACE mg/dl (Neg); UROBILINOGEN,URINE 0.2 E.U/dL (0.2-1.0)
[2020-09-07 10:47] LABS: UA COLLECTION TYPE CLN CATCH MIDSTREAM
[2020-09-07 10:50] LABS: FINE GRANULAR CAST 0-3 /LPF (NEGATIVE); SQUAMOUS EPITHELIAL CELL,UR MANY /LPF (FEW)
[2020-09-07 10:51] LABS: BACTERIA,URINE FEW /HPF (Neg); RBC,URINE 0-2 /HPF (0-2); WBC,URINE 0-4 /HPF (0-4)
[2020-09-07] MEDS ORDERED: proCHLORperazine 10 MG/2 ml inj IV ONE (11:25)
--- NOTE | 2020-09-07 11:39 | NUR ---
RELIEVING RN FOR BREAK, PT IS RESTING QUIETLY ON GURNEY, RESP EVEN AND UNLABORED, MEDICATED PER ORDER, THIRD LITER NS INFUSING W/O
--- NOTE | 2020-09-07 11:43 | NUR ---
PT AMB WITH STEADY GAIT TO RESTROOM
[2020-09-07] MEDS ORDERED: ONDA4TAB12 PO ×2 (12:10)
[2020-09-07] MEDS ORDERED: LORazepam 2 mg/ml vial IV ONE (12:10)
--- NOTE | 2020-09-07 12:38 | NUR ---
ATIVAN GIVEN EARLIER FOR ANXIETY AND NAUSEA. HEART RATE REMAINS TACHYCARDIC AT 110/MIN. IV INFUSING WELL.
[2020-09-07 13:30] LABS: D-DIMER 0.22 MG/L FEU (0-0.50)
[2020-09-07 13:41] LABS: ALBUMIN 2.8 G/DL (3.4-5.0); ANION GAP 14 (8-16); BLOOD UREA NITROGEN 15 MG/DL (7-18); BUN/CREATININE RATIO 20.5 (6.6-38.0); CALCIUM 6.9 MG/DL (8.5-10.1); CHLORIDE 101 MMOL/L (99-107); CREATININE 0.73 MG/DL (0.40-0.90); GLUCOSE 85 MG/DL (70-104); POTASSIUM 3.5 MMOL/L (3.5-5.1); SODIUM 134 MMOL/L (135-145); TOTAL CARBON DIOXIDE 18.8 MMOL/L (24-32); eGFR 87 ML/MIN
--- NOTE | 2020-09-07 13:53 | NUR ---
RELIEVING RN FOR BREAK, PT IS SLEEPING, EASILY AROUSEABLE, "I FEEL BETTER" PT HAS BEEN SIPPING ON WATER, NO N/V
--- NOTE | 2020-09-07 13:55 | NUR ---
DR PEERZ AT BEDSIDE TO REEVALUATE PT
[2020-09-07] MEDS ORDERED: NO HOME MEDS (13:57)
--- NOTE | 2020-09-07 13:58 | NUR ---
PLAN TO ADMIT PT, MED REC DONE
[2020-09-07] MEDS ORDERED: acetaminophen 325mg tablet PO PRN (14:10)
[2020-09-07] MEDS ORDERED: ondansetron/PF 4mg/2ml inj IV PRN (14:10)
[2020-09-07] MEDS ORDERED: mag hydrox/Alum hydrox/simeth 30ml oral suspension PO PRN (14:10)
[2020-09-07] MEDS ORDERED: proCHLORperazine 10 MG/2 ml inj IV PRN (14:10)
[2020-09-07] MEDS ORDERED: magnesium hydroxide 30ml (MOM) UD suspension PO PRN (14:10)
--- NOTE | 2020-09-07 14:30 | NUR ---
Report received from ED RNKamala
[2020-09-07 14:34] LABS: URINE AMPHETAMINE SCREEN NEGATIVE (Neg); URINE BARBITUATE SCREEN NEGATIVE (Neg); URINE BENZODIAZEPINES SCREEN NEGATIVE (Neg); URINE CANNABINOID SCREEN NEGATIVE (Neg); URINE COCAINE SCREEN NEGATIVE (Neg); URINE METHADONE SCREEN NEGATIVE (Neg); URINE OPIATE SCREEN NEGATIVE (Neg); URINE PHENCYCLIDINE SCREEN NEGATIVE (Neg)
--- NOTE | 2020-09-07 14:37 | NUR ---
report called to Emeli RN
[2020-09-07 15:25] VITALS: BP 148/85
[2020-09-07] MEDS: normal saline 1000ml 1,000 ML IV SCH (15:51)
[2020-09-07 18:00] VITALS: BP 139/85
--- NOTE | 2020-09-07 18:30 | NUR ---
Problems reprioritized. Patient report given, questions answered & plan of care reviewed with CARMELA Rod.
--- NOTE | 2020-09-07 18:30 | NUR ---
Patient in room ORTHO 4014. I have received report from Emeli CASEY and had the opportunity to ask questions and assume patient care.
[2020-09-07] MEDS: pantoprazole 40 MG vial IV SCH (19:36)
[2020-09-07] MEDS: metroNIDAZOLE-Flagyl 500mg/NS 100 ML IV SCH (19:36)
[2020-09-07] MEDS: ciprofloxacin lact 400MG/200ML 200 ML IV SCH (21:29)
[2020-09-07 22:00] VITALS: BP 137/82
[2020-09-08] MEDS: metroNIDAZOLE-Flagyl 500mg/NS 100 ML IV SCH ×2 (00:28→09:26)
[2020-09-08] MEDS: normal saline 1000ml 1,000 ML IV SCH (00:29)
[2020-09-08 05:46] LABS: BASOPHILS % (AUTO) 0.3 % (0-1); EOSINOPHILS # (AUTO) 0.1 X10'3 (0-0.9); EOSINOPHILS % (AUTO) 1.3 % (0-6); HEMATOCRIT 34.9 % (35.0-45.0); LYMPHOCYTES # (AUTO) 1.9 X10'3 (1.1-4.8); MEAN CORPUSCULAR HEMOGLOBIN 31.3 PG (27.0-31.0); MEAN CORPUSCULAR HGB CONC 34.4 g/dL (33.0-36.5); MEAN CORPUSCULAR VOLUME 91.1 FL (78-98); MEAN PLATELET VOLUME 8.2 FL (7.4-10.4); MONOCYTES # (AUTO) 0.6 X10'3 (0-0.9); MONOCYTES % (AUTO) 9.9 % (2-12); NEUTROPHILS # (AUTO) 3.4 X10'3 (1.8-7.7); NEUTROPHILS % (AUTO) 56.5 % (42-75); PLATELET COUNT 159 X10'3 (140-440); RED BLOOD COUNT 3.84 X10'6 (4.20-5.60); RED CELL DISTRIBUTION WIDTH 14.2 % (11.5-14.5)
[2020-09-08 05:52] LABS: ALBUMIN 2.6 G/DL (3.4-5.0); ANION GAP 10 (8-16); BLOOD UREA NITROGEN 6 MG/DL (7-18); CALCIUM 7.5 MG/DL (8.5-10.1); CHLORIDE 107 MMOL/L (99-107); CREATININE 0.75 MG/DL (0.40-0.90); GLUCOSE 109 MG/DL (70-104); SODIUM 139 MMOL/L (135-145); TOTAL CARBON DIOXIDE 21.6 MMOL/L (24-32); eGFR 84 ML/MIN
[2020-09-08 06:00] VITALS: BP 136/83
--- NOTE | 2020-09-08 06:26 | NUR ---
Problems reprioritized. Patient report given, questions answered & plan of care reviewed with Roshni CASEY.
[2020-09-08] MEDS ORDERED: magnesium Cl slow-release 64mg tablet PO PRN (07:05)
[2020-09-08] MEDS ORDERED: potassium Cl 40MEQ/1/2NS 520ml 520 ML IV PRN (07:05)
[2020-09-08] MEDS ORDERED: potassium Cl 20 mEq SR tablet PO PRN (07:05)
[2020-09-08] MEDS ORDERED: magnesium 4gm in 100ml NS 100 ML IV PRN (07:05)
[2020-09-08] MEDS: potassium Cl 20 mEq SR tablet PO PRN ×2 (07:36→11:06)
[2020-09-08] MEDS ORDERED: K and/or MAG REPLACEMENT MC SCH (08:00)
[2020-09-08] MEDS ORDERED: enoxaparin 40mg/0.4ml syringe SUBCUT SCH (08:00)
[2020-09-08] MEDS: pantoprazole 40 MG vial IV SCH (09:30)
[2020-09-08] MEDS ORDERED: METR-159 PO (10:17)
[2020-09-08] MEDS ORDERED: CIPR-202 PO (10:17)
[2020-09-08 11:00] VITALS: BP 142/88
[2020-09-08] MEDS: ciprofloxacin lact 400MG/200ML 200 ML IV SCH (11:01)
[2020-09-08 14:52] LABS: MAGNESIUM 1.8 MG/DL (1.5-2.4); POTASSIUM 3.8 MMOL/L (3.5-5.1)
--- NOTE | 2020-09-08 14:59 | NUR ---
PAGER ID: [phone] MESSAGE: [id number] Rayshawn Franco 3.8 m 1.8 after 2 po doses k dur. ok to dc home now?
[2020-09-08] MEDS ORDERED: lactobacillus rhamnosus 10,000 MMU CELLS/CAPSULE PO SCH (20:00)
== END 2020-09-08 15:25 | disposition home or self-care (01) ==
LOC: EEVIPCON 07:00 → ER 07:00 → ED HOLD 14:09 → EDBEDREQ 14:26 → ORTHO 4S 15:10
PROVIDERS: ADMIT Family Medicine; ATTEND Family Medicine
DX: R11.2 Nausea with vomiting, unspecified (principal); R00.0 Tachycardia, unspecified; E87.6 Hypokalemia; E87.2 Acidosis; F32.9 Major depressive disorder, single episode, unspecified; Z90.49 Acquired absence of other specified parts of digestive tract; Z98.84 Bariatric surgery status; F41.9 Anxiety disorder, unspecified
CPT/HCPCS: 36415; 74176; 80048; 80053; 80305; 81001; 83690; 83735; 84132; 84443; 84703; 85025; 85379; 93005; 96361; 96365; 96366; 96367; 96375; 96376; 99285; C9113; G0378; J0744; J0780; J1200; J2060; J2405; J2765; J3490; J7030; Q9967

== ENCOUNTER 2020-09-09 05:20 | Emergency (ER) | payer BC ==
[~2020-09-09] VITALS: Ht 152.4 cm; Wt 77.3 kg
[~2020-09-09 05:20] MED LIST changes: +CIPR-202 PO; -HYDR-3686 PO; +METR-159 PO; -TRAZ-251 PO; -VENL150T3 PO
[2020-09-09 06:34] LABS: BASOPHILS % (AUTO) 0.4 % (0-1); EOSINOPHILS # (AUTO) 0.2 X10'3 (0-0.9); EOSINOPHILS % (AUTO) 2.1 % (0-6); HEMATOCRIT 35.6 % (35.0-45.0); HEMOGLOBIN 12.4 g/dl (12.0-16.0); LYMPHOCYTES # (AUTO) 2.5 X10'3 (1.1-4.8); LYMPHOCYTES % (AUTO) 33.6 % (21-51); MEAN CORPUSCULAR HEMOGLOBIN 31.6 PG (27.0-31.0); MEAN CORPUSCULAR HGB CONC 34.9 g/dL (33.0-36.5); MEAN CORPUSCULAR VOLUME 90.7 FL (78-98); MEAN PLATELET VOLUME 8.4 FL (7.4-10.4); MONOCYTES # (AUTO) 0.5 X10'3 (0-0.9); MONOCYTES % (AUTO) 6.8 % (2-12); NEUTROPHILS # (AUTO) 4.2 X10'3 (1.8-7.7); NEUTROPHILS % (AUTO) 57.1 % (42-75); PLATELET COUNT 151 X10'3 (140-440); RED BLOOD COUNT 3.92 X10'6 (4.20-5.60); RED CELL DISTRIBUTION WIDTH 14.2 % (11.5-14.5); WHITE BLOOD COUNT 7.3 X10'3 (4.5-11.0)
[2020-09-09 06:40] LABS: ALANINE AMINOTRANSFERASE 45 U/L (12-78); ALBUMIN 2.9 G/DL (3.4-5.0); ALBUMIN/GLOBULIN RATIO 0.9 (1.1-1.5); ALKALINE PHOSPHATASE 91 IU/L (46-116); ANION GAP 8 (8-16); ASPARTATE AMINO TRANSFERASE 34 U/L (10-37); BILIRUBIN,TOTAL 0.8 MG/DL (0.1-1.0); BLOOD UREA NITROGEN 6 MG/DL (7-18); BUN/CREATININE RATIO 7.4 (6.6-38.0); CALCIUM 8.1 MG/DL (8.5-10.1); CHLORIDE 105 MMOL/L (99-107); CREATININE 0.81 MG/DL (0.40-0.90); GLUCOSE 118 MG/DL (70-104); POTASSIUM 3.1 MMOL/L (3.5-5.1); SODIUM 139 MMOL/L (135-145); TOTAL CARBON DIOXIDE 26.2 MMOL/L (24-32); TOTAL PROTEIN 6.3 G/DL (6.4-8.2); eGFR 77 ML/MIN
[2020-09-09 07:13] VITALS: BP 140/103
== END 2020-09-09 07:15 | disposition home or self-care (01) ==
LOC: ER 05:20 → EEVIPCON 05:20 → ER 07:15
DX: R07.89 Other chest pain (principal); R06.02 Shortness of breath; F41.9 Anxiety disorder, unspecified; F32.9 Major depressive disorder, single episode, unspecified; Z86.2 Personal history of diseases of the blood and blood-forming organs and certain disorders involving the immune mechanism; Z72.89 Other problems related to lifestyle; Z88.6 Allergy status to analgesic agent; Z88.5 Allergy status to narcotic agent; Z79.2 Long term (current) use of antibiotics
CPT/HCPCS: 36415; 71045; 80053; 83880; 84484; 85025; 93005; 99285

== ENCOUNTER 2023-08-26 16:30 | Emergency (ER) | payer BC, MEDICAID ==
[~2023-08-26] VITALS: Ht 162.6 cm; Wt 136.4 kg
[2023-08-26 17:04] LABS: BILIRUBIN,URINE NEGATIVE (Neg); CLARITY,URINE CLOUDY (Clear); COLOR,URINE YELLOW (Yellow); GLUCOSE, URINE NEGATIVE (Neg); KETONES,URINE TRACE mg/dl (Neg); LEUKOCYTE ESTERASE ,URINE NEGATIVE (Neg); NITRITES, URINE NEGATIVE (Neg); OCCULT BLOOD,URINE MODERATE (Neg); PH,URINE 5.5 (4.8-8.0); PROTEIN,URINE 100 mg/dl (Neg); UROBILINOGEN,URINE 0.2 E.U/dL (0.2-1.0)
[2023-08-26 17:11] LABS: UA COLLECTION TYPE OTHER
[2023-08-26 17:13] LABS: COARSE GRANULAR CAST >30 /LPF (NEGATIVE)
[2023-08-26 17:28] LABS: BACTERIA,URINE 2+ /HPF (Neg); SQUAMOUS EPITHELIAL CELL,UR NONE SEEN /LPF (FEW)
[2023-08-26 17:29] LABS: FINE GRANULAR CAST >30 /LPF (NEGATIVE); RBC,URINE 0-2 /HPF (0-2)
[2023-08-26] MEDS: ondansetron/PF 4mg/2ml inj IV ONE (18:04)
[2023-08-26] MEDS: diazepam inj 5 MG/ML inj. IV ONE (18:04)
[2023-08-26] MEDS: normal saline 1000ML IV soln IVB ONE (18:05)
[2023-08-26 18:14] LABS: URINE AMPHETAMINE SCREEN NEGATIVE (Neg); URINE BARBITUATE SCREEN NEGATIVE (Neg); URINE BENZODIAZEPINES SCREEN NEGATIVE (Neg); URINE CANNABINOID SCREEN NEGATIVE (Neg); URINE COCAINE SCREEN NEGATIVE (Neg); URINE METHADONE SCREEN NEGATIVE (Neg); URINE PHENCYCLIDINE SCREEN NEGATIVE (Neg)
[2023-08-26 18:38] LABS: ETHANOL 248 MG/DL (<10)
[2023-08-26 18:49] LABS: HCG SERUM QL NEGATIVE
[2023-08-26] MEDS ORDERED: PREG50CA PO (19:23)
[2023-08-26] MEDS: CefTRIAXone 2gm/D5W 50ml BAG 50 ML IV ONE (21:03)
[2023-08-26] MEDS ORDERED: CEPH250T PO (21:34)
[2023-08-26] MEDS: hydrALAZINE 20mg/ml inj. IV ONE (22:04)
[2023-08-26] MEDS ORDERED: HYDR50TA46 PO (22:07)
[2023-08-26 22:48] VITALS: BP 144/94; PULSE 72; RESP 16; TEMP 98; O2SAT 99
== END 2023-08-26 22:51 | disposition home or self-care (01) ==
LOC: ER 16:30
DX: F10.129 Alcohol abuse with intoxication, unspecified (principal); Z20.822 Contact with and (suspected) exposure to COVID-19; N39.0 Urinary tract infection, site not specified; Z88.5 Allergy status to narcotic agent; Z79.1 Long term (current) use of non-steroidal anti-inflammatories (NSAID); Z79.899 Other long term (current) drug therapy; Y90.9 Presence of alcohol in blood, level not specified
CPT/HCPCS: 36415; 80305; 80320; 81001; 84703; 87088; 87811; 96361; 96365; 96375; 99285; J0696; J2405; J3360; J7030; C1758